=== PATIENT | male | born 1960 | race Caucasian/White ===

== ENCOUNTER 2017-05-09 18:30 | Emergency (ER) | payer BC ==
[2017-05-09] MEDS ORDERED: Meclizine 25 MG Tab PO ONE (18:47)
--- NOTE | 2017-05-10 02:33 | ER ---
DATE SEEN: 05/09/2017 CHIEF COMPLAINT: Dizziness. HISTORY OF PRESENT ILLNESS: A 57-year-old male, who complains of feeling dizzy. He described things moving around, spinning, and also unsteady on his feet associated with nausea. Symptoms started about 1500 hours. By the time I saw him around 2000 hours, his symptoms had improved after an injection of promethazine. He complains of some abdominal discomfort that has also resolved. He had decreased appetite, which has improved. Denies any chest pain, shortness of breath, fever, or chills. PAST MEDICAL HISTORY: CAD, status post CABG x3. CURRENT MEDICATIONS: 1. Sertraline. 2. Zocor. 3. Metoprolol. 4. Aspirin. ALLERGIES: None. SOCIAL HISTORY: He is a smoker. PHYSICAL EXAMINATION: VITAL SIGNS: He has a normal blood pressure, his pulse is 56 initially, and his temp is 97.7, and oxygenation 99% on room air. ENT: Negative. NECK: Supple. CHEST: Clear. CARDIOVASCULAR: Normal. ABDOMEN: Soft and benign. MENTAL STATUS: Alert. LABORATORY DATA: Initial labs including a CBC, CMP, troponin negative. EKG, normal sinus rhythm. IMPRESSION: Vertigo. PLAN: We will discharge home with meclizine with strict instructions to be seen tomorrow morning with PCP. Return to the ED with any worsening symptoms. TIME SEEN: 2000 hours. /[id number] KADEN/COLLINS
== END 2017-05-09 20:09 | disposition home or self-care (01) ==
LOC: FB.ED 18:30
DX: R42 Dizziness and giddiness (principal); I25.10 Atherosclerotic heart disease of native coronary artery without angina pectoris; F17.200 Nicotine dependence, unspecified, uncomplicated
CPT/HCPCS: 36415; 80053; 84484; 85025; 93005; 99284; A9270

== ENCOUNTER 2017-09-02 17:07 | Observation (INO) | payer OTHER ==
[2017-09-02] MEDS ORDERED: Sodium Chloride 0.9% 10 ML Syringe FLUSH PRN (17:22)
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
[2017-09-02] MEDS ORDERED: Nitroglycerin 0.4 MG Tab.SL SL ONE (17:40)
[2017-09-02] MEDS ORDERED: Aspirin 81 MG Tab.Chew PO ONE (18:47)
[2017-09-02] MEDS ORDERED: Ondansetron 4 MG Tab.DIS PO PRN (18:53)
[2017-09-02] MEDS ORDERED: Acetaminophen 325 MG Tab PO PRN (18:53)
[2017-09-02] MEDS ORDERED: Zolpidem 5 MG Tab PO PRN (18:53)
[2017-09-02] MEDS ORDERED: Magnesium Hydroxide 400 MG/5 ML Susp 30 ML Cup PO PRN (18:53)
[2017-09-02] MEDS ORDERED: Morphine 2 MG/ML Syringe IVPUSH PRN (18:53)
[2017-09-02] MEDS: Sodium Chloride 0.9% 1,000 ML IV SCH (20:46)
[2017-09-02] MEDS ORDERED: FLU Vacc QS 2017-18 (36mos UP)/PF 60 MCG/0.5 ML Syringe IM ONE (22:00)
[2017-09-02] MEDS ORDERED: atorvaSTATin 40 MG Tab PO SCH (22:00)
[2017-09-03] MEDS: Sodium Chloride 0.9% 1,000 ML IV SCH (06:02)
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
[2017-09-03] MEDS ORDERED: Aspirin 81 MG Tab.Chew PO SCH (09:00)
[2017-09-03] MEDS ORDERED: Metoprolol Succinate 25 MG Tab.ER PO SCH (09:00)
[2017-09-03] MEDS ORDERED: Sertraline 100 MG Tab PO SCH (09:00)
== END 2017-09-03 13:55 | disposition home or self-care (01) ==
LOC: FB.ED 17:07 → FB.MS 18:52
PROVIDERS: ADMIT Emergency Medicine; ATTEND Family Medicine
DX: R55 Syncope and collapse (principal); I25.10 Atherosclerotic heart disease of native coronary artery without angina pectoris; E78.5 Hyperlipidemia, unspecified; I10 Essential (primary) hypertension; Z79.82 Long term (current) use of aspirin; Z79.899 Other long term (current) drug therapy; F17.210 Nicotine dependence, cigarettes, uncomplicated; Z95.1 Presence of aortocoronary bypass graft
CPT/HCPCS: 36415; 70551; 80048; 81001; 83735; 84484; 85027; 93005; 96360; 96361; 99285; A9270-GY; G0378; J7040; J7050

== ENCOUNTER 2020-10-15 19:47 | Emergency (ER) | payer BC, OTHER ==
[2020-10-15] MEDS ORDERED: Acetaminophen/HYDROcodone 325-5 MG Tab PO ONE (19:48)
[2020-10-15] MEDS ORDERED: hydrOXYzine HCl 50 MG/ML SDV IM ONE (19:59)
[2020-10-15] MEDS ORDERED: HYDROmorphone 2 MG/ML SDV IM ONE (19:59)
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
== END 2020-10-15 20:28 | disposition home or self-care (01) ==
LOC: FB.ED 19:47
DX: K08.89 Other specified disorders of teeth and supporting structures (principal); E78.00 Pure hypercholesterolemia, unspecified; I10 Essential (primary) hypertension; Z79.82 Long term (current) use of aspirin; Z79.899 Other long term (current) drug therapy
CPT/HCPCS: 96372; 99282; 99283; A9270-GY; J1170; J3410